=== PATIENT | female | born 1975 | race Caucasian/White ===

== ENCOUNTER 2018-07-05 19:04 | Emergency (ER) | payer OTHER ==
[~2018-07-05] VITALS: Ht 157.5 cm; Wt 65.8 kg
[2018-07-05] MEDS ORDERED: [UNRECOGNIZED DRUG - OTHER] (19:14)
== END 2018-07-05 22:46 | disposition home or self-care (01) ==
LOC: ER 19:04
DX: H92.02 Otalgia, left ear (principal)

== ENCOUNTER 2023-05-20 19:58 | Emergency (ER) | payer OTHER ==
[~2023-05-20] VITALS: Ht 157.5 cm; Wt 72.6 kg
[~2023-05-20 19:58] MED LIST: [UNRECOGNIZED DRUG - OTHER]
[2023-05-20 22:17] LABS: HEMATOCRIT 40.3 % (36.0-45.00); HEMOGLOBIN 13.9 g/dL (12.0-15.00); MEAN CELL VOLUME 88.3 fL (80.00-100.00); MEAN CORPUSCULAR HEMOGLOBIN 30.5 pg (27.00-32.0); MEAN CORPUSCULAR HGB CONC 34.6 g/dl (32.0-36.0); PH,URINE 5.5 (5.0-8.0); PLATELET COUNT 306 K/uL (150-450); RED BLOOD COUNT 4.56 M/uL (4.00-6.00); RED CELL DISTRIBUTION WIDTH 13.2 % (11.5-14.5); URINE APPEARANCE Cloudy; URINE BILIRRUBIN Negative (NEGATIVE); URINE BLOOD Negative; URINE COLOR Yellow; URINE GLUCOSE Negative (NEGATIVE); URINE LEUKOCYTE Trace; URINE NITRATE Negative; URINE PROTEIN Negative (NEGATIVE)
[2023-05-20 22:18] LABS: URINE BACTERIA 439.6 uL (0.0-1933); URINE EPITHELIAL CELLS 17.6 uL (0.0-38.8); URINE RBC 6.7 uL (0.0-20.8); URINE WBC 40.8 uL (0.0-23.2)
[2023-05-20 22:43] LABS: CALCIUM 8.9 mg/dL (8.5-10.1); CREATININE SERUM 0.74 mg/dL (0.55-1.02); GFR 84.87; POTASSIUM 3.43 mEq/L (3.5-5.1)
[2023-05-20] MEDS ORDERED: LOSARTAN-HCTZ1 EACH PO (23:31)
== END 2023-05-20 23:52 | disposition home or self-care (01) ==
LOC: ER 19:58
PROVIDERS: General Practice
DX: I10 Essential (primary) hypertension (principal)